=== PATIENT | female | born 2000 | race Hispanic/Latino ===

== ENCOUNTER 2021-07-27 20:31 | Emergency (ER) | payer MEDICAID ==
[2021-07-28 01:47] LABS: SARS-CoV-2 PCR by NAA Not Detected (NotDetected)
== END 2021-07-27 22:30 | disposition home or self-care (01) ==
LOC: ERS 20:31
DX: O98.512 Other viral diseases complicating pregnancy, second trimester (principal); B34.9 Viral infection, unspecified; Z20.822 Contact with and (suspected) exposure to COVID-19; Z3A.20 20 weeks gestation of pregnancy
CPT/HCPCS: 87081; 87430; 99283; U0003; U0005